=== PATIENT | female | born 1950 | race Caucasian/White ===

== ENCOUNTER 2023-07-11 08:20 | Outpatient (CLI) | payer MEDICARE ==
[~2023-07-11] VITALS: Ht 157.5 cm; Wt 77.1 kg
[~2023-07-11 08:20] MED LIST: NO HOME MEDS; PANT40TA39 PO
[2023-07-11] MEDS ORDERED: albuterol 2.5 MG/3 ML nebule NEB ONE (09:10)
== END 2023-07-11 23:59 | disposition home or self-care (01) ==
LOC: RT 08:20
PROVIDERS: ATTEND Specialist
DX: J44.9 Chronic obstructive pulmonary disease, unspecified (principal); R05.9 Cough, unspecified
CPT/HCPCS: 85018; 94010; 94727; 94729